=== PATIENT | male | born 1985 | race Caucasian/White ===

== ENCOUNTER 2021-04-28 08:48 | Emergency (ER) | payer OTHER ==
[~2021-04-28] VITALS: Ht 177.8 cm; Wt 90.0 kg
[2021-04-28 12:59] VITALS: BP 142/78
== END 2021-04-28 13:17 | disposition home or self-care (01) ==
LOC: EMS 08:48
DX: N50.811 Right testicular pain (principal)
CPT/HCPCS: 76870; 99284; Z7502

== ENCOUNTER 2021-06-29 09:46 | Emergency (ER) | payer OTHER ==
[~2021-06-29] VITALS: Ht 185.4 cm; Wt 102.0 kg
[2021-06-29 09:50] VITALS: BP 130/81
[2021-06-29 12:05] LABS: COVID AG,FIA SOURCE NASAL SWAB
== END 2021-06-29 13:27 | disposition home or self-care (01) ==
LOC: EMS 09:47
DX: Z20.822 Contact with and (suspected) exposure to COVID-19 (principal); F12.90 Cannabis use, unspecified, uncomplicated; F17.210 Nicotine dependence, cigarettes, uncomplicated
CPT/HCPCS: 99283